=== PATIENT | male | born 1955 | race Caucasian/White ===

== ENCOUNTER → 2020-07-02 | Outpatient (CLI) | payer MEDICARE, OTHER | LOC: HEART 5 10:12 | DX: R01.1 Cardiac murmur, unspecified (principal) | CPT/HCPCS: 93306 ==

== ENCOUNTER 2020-11-21 17:36 | Emergency (ER) | payer MEDICARE, OTHER ==
[2020-11-21] MEDS ORDERED: LODINE CAP 300300 MG PO (20:13)
== END 2020-11-21 20:27 | disposition home or self-care (01) ==
LOC: ER1 17:36
DX: H92.01 Otalgia, right ear (principal); I11.9 Hypertensive heart disease without heart failure; Z95.1 Presence of aortocoronary bypass graft
CPT/HCPCS: 99282

== ENCOUNTER → 2021-06-23 | Outpatient (CLI) | payer MEDICARE, OTHER ==
[~2021-06-23] MED LIST: LODINE CAP 300300 MG PO
== END ==
LOC: HEART 5 14:30
DX: I35.0 Nonrheumatic aortic (valve) stenosis (principal); I51.7 Cardiomegaly